=== PATIENT | female | born 1950 | race Caucasian/White ===

== ENCOUNTER → 2019-12-23 | Outpatient (CLI) | payer MEDICARE, OTHER ==
[~2019-12-23] VITALS: Ht 165 cm; Wt 112.0 kg
[~2019-12-23] MED LIST: ASP325TEC PO; ASP81TEC PO; BRILINTA PO; CATHETER FLUSH 10 ML SYR IV PRN; CLOP75TA; CLOP75TA PO; CYCL10TA9 PO; DOCU100T7 PO; ESOM20SU PO; HYDR12.56 PO; LISI20TA PO; METO50TA7 PO; MULT-608; NAPR-243 PO; OMEP20CA12 PO; OMG1KC PO; OXYC-12 PO; REGADENOSON 0.4 MG/5 ML SYR (LEXISCAN) IV ONE; SIMV40TA2 PO; SMV20T PO; TICA90TA PO; TOLTA4 PO; TRM50T PO
--- NOTE | 2019-12-23 12:37 | STRESS TEST ---
DATE OF SERVICE: 12/23/2019 RESTING AND POST REGADENOSON TECHNETIUM-99M TETROFOSMIN SPECT CT IMAGING ORDERING PHYSICIAN: Dr. Blanco. PRIMARY PHYSICIAN: Dr. Killian. CLINICAL DIAGNOSES: Coronary artery disease. Baseline images were carried out after injection of 10.98 mCi of technetium-99m Tetrofosmin. This was followed by 0.4 mg regadenoson and 29.7 mCi of technetium-99m Tetrofosmin for stress imaging. The electrocardiogram showed sinus rhythm at baseline and did not change significantly with the regadenoson infusion. The patient noted some shortness of breath following regadenoson infusion, which resolved in a few minutes. Review of images at rest and following stress does not indicate significant perfusion defects consistent with myocardial ischemia or infarction. Gated images show normal global left ventricular systolic function with normal regional wall motion. Left ventricular ejection fraction calculated to be 51%. Left ventricular end diastolic volume is 46 mL. TID is absent (1.14). CONCLUSIONS: 1. No evidence of any significant myocardial ischemia or infarction is seen. 2. Normal regional wall motion. 3. Normal global left ventricular systolic function with a calculated ejection fraction of 51%. Job ID: [id number] DocumentID: [id number] Dictated Date: 12/23/2019 12:20:11 Glaze Carrier Date: 12/23/2019 12:36:16 Dictated By: NETO BLANCO MD, MA, FACP, FACC,
== END ==
LOC: CARD 07:51
PROVIDERS: ATTEND Internal Medicine Cardiovascular Disease
DX: I25.10 Atherosclerotic heart disease of native coronary artery without angina pectoris (principal); I77.89 Other specified disorders of arteries and arterioles; E78.5 Hyperlipidemia, unspecified; G47.30 Sleep apnea, unspecified
CPT/HCPCS: 78452; 93017

== ENCOUNTER → 2019-12-29 | Outpatient (CLI) | payer MEDICARE, OTHER ==
[~2019-12-29] MED LIST changes: -CATHETER FLUSH 10 ML SYR IV PRN; -REGADENOSON 0.4 MG/5 ML SYR (LEXISCAN) IV ONE
== END ==
LOC: CARD 08:46
PROVIDERS: ATTEND Internal Medicine Cardiovascular Disease
DX: I25.10 Atherosclerotic heart disease of native coronary artery without angina pectoris (principal); I77.89 Other specified disorders of arteries and arterioles; E78.5 Hyperlipidemia, unspecified; G47.30 Sleep apnea, unspecified
CPT/HCPCS: 93306

== ENCOUNTER 2021-07-17 18:04 | Emergency (ER) | payer MEDICARE ==
[~2021-07-17] VITALS: Ht 165 cm; Wt 113.0 kg
[2021-07-17 18:15] VITALS: BP 121/75
[2021-07-17] MEDS ORDERED: TETANUS,DIPTH,PERTUSS P/F (BOOSTRIX) 0.5 ML VIAL IM ONE (18:30)
[2021-07-17] MEDS ORDERED: LIDOCAINE 1% INJ 20 ML 20 ML VIAL INJ ONE (18:45)
[2021-07-17] MEDS ORDERED: ACETAMINOPHEN 500 MG TAB (TYLENOL) PO STA (18:51)
[2021-07-17] MEDS ORDERED: DOXYCYCLINE 100 MG (VIBRAMYCIN) TABLET PO STA (19:03)
--- NOTE | 2021-07-17 19:07 | ED Upper Extremity ---
General Chief Complaint: Upper Extremity Stated Complaint: PIEDAD IN FINGER,LEFT HAND Nursing Triage Note: Pt here after having her finger cut with furniture piedad; states the staple was ripped through her left index finger. Unknown last tetanus shot. Source: patient Exam Limitations: no limitations History of Present Illness Date Seen by Provider: Jul 17, 2021 Time Seen by Provider: 18:15 Initial Comments This 71-year-old woman presents to the emergency room with laceration to the left index finger. She snagged her finger on a large furniture staple. She has a 2.5 cm flap laceration as well as a puncture where the staple came through the skin from beneath the flap laceration. She is not up-to-date on her tetanus immunization. Bleeding is controlled at this time. Allergies and Home Medications Allergies Coded Allergies: codeine (Verified Allergy, Severe, RASH/HIVES; CAN TAKE HYDROCODONE, 01/22/13) ORIGINAL RXN = BREATHING PROBLEMS, WHEN PT QUESTIONED TODAY 01/22/13 GAVE RASH & HIVES REACTION. Sulfa (Sulfonamide Antibiotics) (Verified Allergy, Unknown, 10/26/15) sulfamethoxazole (Unverified Allergy, Unknown, HIVES, 10/26/15) trimethoprim (Unverified Allergy, Unknown, HIVES, 10/26/15) Home Medications Aspirin 81 Mg Tabec, 81 MG PO DAILY, (Reported) Cyclobenzaprine Hcl 10 Mg Tablet, 1 EACH PO Q8HR Prescribed by: TAYLOR TYLER on 01/14/14 0808 Docusate Sodium 100 Mg Tablet, 100 MG PO DAILY, (Reported) Doxycycline Hyclate 100 Mg Tablet, 100 MG PO BID Prescribed by: TODD SANDY on 07/17/21 191 Esomeprazole Mag Trihydrate 20 Mg Suspdr.pkt, 20 MG PO DAILY, (Reported) Lisinopril 20 Mg Tablet, 20 MG PO DAILY, (Reported) Metoprolol Succinate 50 Mg Tab, 50 MG PO DAILY, (Reported) Naproxen 500 Mg Tablet, 1 EACH PO TID PRN for PAIN FOR PAIN Prescribed by: TAYLOR TYLER on 01/14/14 0808 [place] 3 Polyunsat Fatty Acids 1,000 Mg Cap, 1,000 MG PO DAILY, (Reported) Simvastatin 20 Mg Tab, 20 MG PO HS, (Reported) Tolterodine Tartrate 4 Mg Cap.sr.24h, 1 EACH PO DAILY, (Reported) Tramadol Hcl 50 Mg Tab, 50 MG PO Q4-6HR PRN for PAIN FOR PAIN Prescribed by: TAYLOR TYLER on 01/14/14 0840 Patient Home Medication List Home Medication List Reviewed: Yes Review of Systems Constitutional: no symptoms reported EENTM: no symptoms reported Respiratory: no symptoms reported Cardiovascular: no symptoms reported : No Musculoskeletal: no symptoms reported Skin: see HPI Psychiatric/Neurological: No Symptoms Reported Past Rluzlzl-Lyqznm-Ijsfpi Hx Patient Social History Tobacco Use?: Yes Past Medical History Surgeries: Yes (Polypectomy) Coronary Stent, Gallbladder, Hysterectomy, Orthopedic Respiratory: Yes Sleep Apnea Cardiac: Yes Coronary Artery Disease, Deep Vein Thrombosis, High Cholesterol, Hypertension, Peripheral Vascular Neurological: Yes Neuropathy : No Reproductive Disorders: No Genitourinary: No Gastrointestinal: Yes Gastroesophageal Reflux, Polyps Musculoskeletal: Yes (Polio as a child) Arthritis HEENT: Yes Hearing Impairment: Hard of Hearing Cancer: No Physical Exam Vital Signs Vital Signs - First Documented 07/17/21 18:15 Temp 37.5 Pulse 70 Resp 18 B/P (MAP) 121/75 (90) Pulse Ox 97 Capillary Refill : Less Than 3 Seconds Height, Weight, BMI Height: 0'65.00" Weight: 244lbs. oz. 110.017083xx; 41.00 BMI Method:Stated General Appearance: WD/WN, no apparent distress HEENT: normal ENT inspection Respiratory: no respiratory distress, no accessory muscle use Wrist: Yes normal inspection, Yes non-tender, Yes no evidence of injury, Yes normal ROM Hand: normal ROM, Left (L-shaped flap laceration on the radial palmar aspect of the left indext finger about 2.5 cm in length. Distal sensation and cap refill intact. Puncutre wound more distal. ) Neurologic/Tendon: normal sensation, normal motor functions, normal tendon functions Neurologic/Psychiatric: gas appliance mechanic II-XII nml as tested, no motor/sensory deficits, alert, normal mood/affect, oriented x 3 Skin: normal color, warm/dry, other (See above) Procedures/Interventions Wound Location: Upper Extremities Other Wound Location Left index finger Wound Length (cm): 2.5 Wound's Depth, Shape: flap, sub Q Wound Explored: clean Irrigated w/ Saline (ccs): 100 Betadine Prep?: Yes Anesthesia: 1% Lidocaine Volume Anesthetic (ccs): 6 Suture: Prolene Suture Size: 5-0 Number of Sutures: 4 Layer Closure?: 1 Sterile Dressing Applied?: Yes Progress Wound was sprayed with lidocaine. Alcohol swabs were used to clean skin. Digital block and local anesthesia were used. Wound was irrigated with saline and chlorhexidine mixture. It was then rinsed with saline. Betadine was applied. Wound was approximated with 4 interrupted sutures of 5-0 Prolene. Patient tolerated the procedure well. Wound was cleaned and dressed with a large Band-Aid. Progress/Results/Core Measures Results/Orders My Orders Orders - TODD CABEZAS MD Dipht,Farhana(Acell),Tet Adult (Boostrix (07/17/21 18:30) Lidocaine 1% Inj 20 Ml (Xylocaine 1% Inj (07/17/21 18:45) Doxycycline Hyclate Tablet (Vibramycin T (07/17/21 19:03) Medications Given in ED Vital Signs/I&O Blood Pressure Mean: 90 Progress Progress Note : Progress Note Wound was cleaned and approximated. Tetanus booster was given. Tylenol was given for pain. Because there was a deep puncture as part of this wound, prophylaxis with doxycycline was given. Departure Impression Primary Impression: Laceration of finger Qualified Codes: S61.211A - Laceration without foreign body of left index finger without damage to nail, initial encounter Additional Impression: Puncture wound Disposition: 01 HOME, SELF-CARE Condition: Improved Departure-Patient Inst. Decision time for Depature: 19:08 Referrals: POLLO SHARPE MD (PCP/Family) Primary Care Physician Patient Instructions: Laceration Repair With Stitches (DC) Add. Discharge Instructions: Keep the wound clean and dry except for normal hand washing. Do not submerge until after stitches are removed. Monitor for signs of infection such as increasing redness, increasing swelling, puslike drainage, or fever. Return to care promptly if you notice the symptoms. Complete your antibiotics as prescribed to prevent infection with this puncture wound. Use Tylenol (acetaminophen) 1000 mg every 6 hours as needed for pain. Return in 7 or 8 days to have the sutures removed. Cover when active, sleeping, or in dirty environments. You may leave open to air while awake and in clean environments. All discharge instructions reviewed with patient and/or family. Voiced understanding. Scripts Doxycycline Hyclate (Doxycycline Hyclate) 100 Mg Tablet 100 MG PO BID, #10 TAB 0 Refills Prov: TODD CABEZAS MD 07/17/21 TODD CABEZAS MD Jul 17, 2021 19:07
[2021-07-17] MEDS ORDERED: DOXY100T2 PO (19:10)
== END 2021-07-17 19:43 | disposition home or self-care (01) ==
LOC: EDUNIT# 18:04 → ER 18:09
DX: S61.211A Laceration without foreign body of left index finger without damage to nail, initial encounter (principal); G47.30 Sleep apnea, unspecified; I10 Essential (primary) hypertension; K21.9 Gastro-esophageal reflux disease without esophagitis; I25.10 Atherosclerotic heart disease of native coronary artery without angina pectoris; E78.00 Pure hypercholesterolemia, unspecified; Z23 Encounter for immunization; Z79.82 Long term (current) use of aspirin; Z79.899 Other long term (current) drug therapy; W26.8XXA Contact with other sharp object(s), not elsewhere classified, initial encounter
CPT/HCPCS: 12011; 90715

== ENCOUNTER → 2022-04-06 | Outpatient (CLI) | payer MEDICARE ==
[~2022-04-06] MED LIST changes: +DOXY100T2 PO
--- NOTE | 2022-04-10 14:02 | Diagnostic Imaging Report ---
INDICATION: Routine screening. Comparison is made with prior mammogram from 04/11/2021 and 03/30/2020. 2-D and 3-D bilateral screening mammography was performed with CAD. Scattered fibroglandular densities are identified bilaterally. A nodular density in the upper outer right breast appears stable. There are scattered benign calcifications bilaterally. No dominant mass or malignant-appearing microcalcifications are seen. Axillae are unremarkable. IMPRESSION: No mammographic features suspicious for malignancy are identified. ACR BI-RADS Category 2: Benign findings. Result letter will be mailed to the patient. Note: At least 10% of breast cancer is not imaged by mammography. BI-RADS Category 2 Dictated by: Dictated on workstation # [id number]
== END ==
LOC: RAD 08:30
PROVIDERS: ATTEND Nurse Practitioner Family
DX: Z12.31 Encounter for screening mammogram for malignant neoplasm of breast (principal)
CPT/HCPCS: 77063; 77067

== ENCOUNTER → 2022-04-06 | Outpatient (CLI) | payer MEDICARE ==
--- NOTE | 2022-04-06 09:19 | Diagnostic Imaging Report ---
PROCEDURE: US Venous Lower Ext Mani. TECHNIQUE: Multiple real-time grayscale images were obtained over the lower extremities in various projections, bilaterally. Additional duplex Doppler and color Doppler images were also obtained. INDICATION: Bilateral leg swelling The veins of lower extremities have good color filling and compressibility. There is phasic flow and a normal response to augmentation. IMPRESSION: Negative venous Doppler lower extremities Dictated by: Dictated on workstation # [id number]
== END ==
LOC: CARD 08:27
PROVIDERS: ATTEND Internal Medicine Cardiovascular Disease
DX: M79.89 Other specified soft tissue disorders (principal); I25.10 Atherosclerotic heart disease of native coronary artery without angina pectoris
CPT/HCPCS: 93306; 93970

== ENCOUNTER → 2022-04-21 | Outpatient (CLI) | payer MEDICARE ==
[~2022-04-21] VITALS: Ht 165 cm; Wt 118.0 kg
[~2022-04-21] MED LIST changes: +REGADENOSON 0.4 MG/5 ML SYR (LEXISCAN) IV ONE
[2022-04-21] MEDS: CATHETER FLUSH 10 ML SYR IVP PRN ×2 (07:49→09:29)
[2022-04-21 09:25] VITALS: BP 184/81
--- NOTE | 2022-04-24 12:24 | STRESS TEST ---
DATE OF SERVICE: 04/21/2022 RESTING AND POST REGADENOSON TECHNETIUM-99M TETROFOSMIN SPECT CT IMAGING ORDERING PHYSICIAN: Dr. Blanco. PRIMARY PHYSICIAN: Dr. Killian. CLINICAL DIAGNOSES: Coronary artery disease. Baseline images were carried out after injection of 10.88 mCi of technetium-99m Tetrofosmin. This was followed by 0.4 mg of regadenoson and 27.7 mCi of technetium-99m Tetrofosmin for stress imaging. The electrocardiogram showed sinus rhythm at baseline. It did not change significantly with the regadenoson infusion. Review of images at rest and following stress indicate a small to moderate amount of transient perfusion defect in the anterior wall and in the inferior wall. Gated images show normal global left ventricular systolic function with normal regional wall motion. Left ventricular ejection fraction is calculated to be 66%. CONCLUSIONS: 1. This study is indicative of multivessel ischemia (moderate). 2. Normal global left ventricular systolic function with an ejection fraction of 66%. 3. Normal regional wall motion. Job ID: [id number] DocumentID: [id number] Dictated Date: 04/24/2022 09:32:49 Suction Worker Date: 04/24/2022 12:24:01 Dictated By: NETO BLANCO MD, MA, FACP, FACC,
== END ==
LOC: CARD 07:27
PROVIDERS: ATTEND Internal Medicine Cardiovascular Disease
DX: I25.10 Atherosclerotic heart disease of native coronary artery without angina pectoris (principal)
CPT/HCPCS: 78452; 93017; A9502

== ENCOUNTER 2022-05-09 06:53 | Day surgery (SDC) | payer MEDICARE ==
[~2022-05-09] VITALS: Ht 165.1 cm; Wt 119.1 kg
[~2022-05-09 06:53] MED LIST changes: -REGADENOSON 0.4 MG/5 ML SYR (LEXISCAN) IV ONE
[2022-05-09] MEDS ORDERED: NS IV 1000 ML 1,000 ML IV SCH (07:00)
[2022-05-09] MEDS ORDERED: HEParin (CATH LAB) 2,000 ML IV ONE (07:03)
[2022-05-09] MEDS ORDERED: NS IV 1000 ML 1,000 ML ONE (07:03)
[2022-05-09] MEDS ORDERED: LIDOCAINE 1% INJ 20 ML VIAL ONE (07:03)
[2022-05-09 07:12] VITALS: BP 155/73
[2022-05-09] MEDS ORDERED: PANT40TA2 PO (07:25)
[2022-05-09 07:27] LABS: HEMATOCRIT 37 % (35-52); HEMOGLOBIN 11.9 g/dL (11.5-16.0); MEAN CORPUSCULAR HEMOGLOBIN 28 pg (25-34); MEAN CORPUSCULAR HGB CONC 32 g/dL (32-36); MEAN CORPUSCULAR VOLUME 87 fL (80-99); MEAN PLATELET VOLUME 10.4 fL (9.0-12.2); PLATELET COUNT 258 10^3/uL (130-400); WHITE BLOOD COUNT 6.6 10^3/uL (4.3-11.0)
[2022-05-09 07:38] LABS: POTASSIUM 4.3 MMOL/L (3.6-5.0); PROTHROMBIN TIME PATIENT 13.7 SEC (12.2-14.7)
[2022-05-09 07:39] LABS: ALBUMIN 4.2 GM/DL (3.2-4.5); CALCIUM 9.3 MG/DL (8.5-10.1)
[2022-05-09 07:41] LABS: TOTAL PROTEIN 7.4 GM/DL (6.4-8.2)
[2022-05-09 07:43] LABS: BILIRUBIN,TOTAL 0.3 MG/DL (0.1-1.0)
[2022-05-09 07:45] LABS: CREATININE SERUM 0.94 MG/DL (0.60-1.30)
[2022-05-09] MEDS ORDERED: MIDAZOLAM 5 MG/5 ML (VERSED) VIAL ONE (07:52)
[2022-05-09] MEDS ORDERED: fentaNYL INJ 100 MCG/2 ML AMP ONE ×2 (07:52→13:10)
[2022-05-09] MEDS ORDERED: diphenhydrAMINE 50 MG/ML INJ (BENADRYL) ONE (08:40)
[2022-05-09] MEDS ORDERED: EPTIFIBATIDE BOLUS 10 ML IV ONE ×2 (08:59→09:07)
[2022-05-09] MEDS ORDERED: HEParin 1000 UNIT/ML (10ML VIAL) FOR BOLUS ONE (08:59)
[2022-05-09] MEDS ORDERED: EPTIFIBATIDE DRIP 100 ML IV ONE (09:10)
[2022-05-09] MEDS ORDERED: NITRO DRIP 25000 MCG/D5W 250 ML IV ONE (09:24)
[2022-05-09] MEDS ORDERED: ONDANSETRON 4 MG/2 ML (SDV) Z0FRAN ONE (09:25)
[2022-05-09] MEDS ORDERED: ATROPINE INJECTION 1 MG/10 ML SYR (ABBOTT) ONE (09:36)
[2022-05-09] MEDS ORDERED: MIDAZOLAM 2 MG/2 ML (VERSED) VIAL ONE (09:42)
[2022-05-09] MEDS ORDERED: CLOPIDOGREL 300 MG (PLAVIX) TABLET PO ONE (09:56)
[2022-05-09] MEDS ORDERED: ASPIRIN 81 MG CHEW (CHILDREN'S ASA) ONE (09:56)
--- NOTE | 2022-05-09 10:14 | Cardiac Procedure Note-CS/ASA ---
Pre-Procedure Note Pre-Op Procedure Note H&P Reviewed The H&P was reviewed, patient examined and no changes noted. Date H&P Reviewed: May 09, 2022 Time H&P Reviewed: 08:45 Conscious Sedation Pre-Proced Time 08:45 ASA Score 3 For ASA 3 and 4: Consider anesthesia and medical clearance. Also, for patients with a history of failed moderate sedation consider anesthesia. Airway Lungs Heart ASA score ASA 1: a normal healthy patient ASA 2: a patient with a mild systemic disease (mid diabetes, controlled hypertension, obesity ASA 3: a patient with a severe systemic disease that limits activity (angina, COPD, prior Myocardial infarction) ASA 4: a patient with an incapacitating disease that is a constant threat to life (CHF, renal failure) ASA 5: a moribund patient not expected to survive 24 hrs. (ruptured aneurysm) ASA 6: a declared brain- patient whose organs are being harvested. For emergent operations, add the letter E after the classification Mallampati Classification Grade 3 Sedation Plan Analgesia, Amnesia, Plan communicated to team members, Discussed options with patient/fam, Discussed risks with patient/fam The patient is an appropriate candidate to undergo the planned procedure, sedation, and anesthesia. The patient immediately re-assessed prior to indication. NETO OJEDA MD FACP FAC CCDS May 09, 2022 10:14
[2022-05-09] MEDS ORDERED: PATIENT MAY USE OWN MEDS, ALL PO SCH (10:15)
[2022-05-09] MEDS: NS IV 1000 ML 1,000 ML IV SCH ×2 (10:15→21:28)
[2022-05-09] MEDS ORDERED: oxyCODONE/APAP 5/325MG (PERCOCET 5) TABLET PO PRN (10:30)
[2022-05-09] MEDS ORDERED: ACETAMINOPHEN 325 MG TABLET PO PRN (10:30)
[2022-05-09] MEDS ORDERED: FAMOTIDINE 20 MG (PEPCID) TABLET PO PRN (10:30)
[2022-05-09] MEDS ORDERED: lisINopril 20 MG (PRINIVIL) TABLET PO ONE (10:45)
[2022-05-09] MEDS ORDERED: CALCIUM CARBONATE 500 MG (TUMS) TAB.CHEW PO ONE ×2 (10:45→14:30)
[2022-05-09] MEDS ORDERED: ASPIRIN 81 MG CHEW (CHILDREN'S ASA) PO ONE (10:45)
[2022-05-09] MEDS ORDERED: CLOPIDOGREL 75 MG (PLAVIX) TABLET PO ONE ×2 (10:45→14:30)
[2022-05-09] MEDS ORDERED: FAMOTIDINE 20 MG (PEPCID) TABLET PO ONE (10:45)
[2022-05-09] MEDS ORDERED: ATROPINE INJ 0.4 MG/ML SDV ONE (13:10)
--- NOTE | 2022-05-09 13:41 | CARDIAC CATHETERIZATION ---
DATE OF SERVICE: 05/09/2022 CARDIAC CATHETERIZATION AND CORONARY INTERVENTION REPORT INDICATION FOR PROCEDURE: The patient a 72-year-old lady with known coronary artery disease, who has been experiencing shortness of breath and intermittent chest discomfort. Myocardial perfusion imaging study was indicative of multivessel ischemia. Cardiac catheterization was carried out after having obtained an informed consent. DESCRIPTION OF PROCEDURE: She was brought to the cardiac catheterization laboratory in a fasting state. Right groin was prepared and draped in the usual sterile fashion. Lidocaine 1% was used for local anesthesia. Modified Seldinger technique was used to advance a 5-Uzbek sheath in the right femoral artery, 5-Uzbek JL4 catheter was used for left angiography, 5-Uzbek JR4 catheter was used for right coronary angiography, 5-Uzbek pigtail catheter was used for left heart catheterization. Left ventricular angiography was not performed. This was to conserve contrast because the patient needed multivessel coronary intervention. Following completion of the diagnostic procedure, we carried out percutaneous interventions to the left anterior descending and to the right coronary arteries. PERCUTANEOUS INTERVENTION OF THE LEFT ANTERIOR DESCENDING: The left anterior descending was exhibiting 80% to 90% proximal and mid vessel stenosis that involved the origin of the first diagonal branch. We exchanged the sheath over a wire for a 6-Uzbek sheath. We used a 6-Uzbek EBU 4 catheter to engage the left coronary artery. We advanced a BMW wire across the lesion in the left anterior descending and the tip was placed in the distal vessel. We stented the 80% to 90% stenosis in the proximal to mid left anterior descending with Skypoint 2.75 x 15 mm stent. It was deployed at 12 atmospheres. The proximal two thirds of the stent were then postdilated with the same balloon to 20 atmospheres. Full stent expansion was achieved. The stenosis was reduced from 80% to 90% to a residual of 0%. The distal left anterior descending has multiple 50% to 60% stenoses, including significant disease in the ostium of the second diagonal branch. These lesions were not intervened on. The first diagonal branch is jailed by the stent, but there is no significant compromise to the vessel. Flow throughout the vessel is normal (FABIEN III). PERCUTANEOUS INTERVENTION TO THE RIGHT CORONARY ARTERY: The right coronary artery was exhibiting in-stent restenosis of approximately 90% at the overlap of two previously placed stents. We used a 6-Uzbek JR4 guide catheter to engage the right coronary artery. We advanced a BMW wire across the lesions and the tip was placed in the distal vessel. We carried out balloon angioplasty at the overlap of the two stents with a 3.5 x 20 mm noncompliant balloon. This reduced the stenosis to less than 10% residual. Flow throughout the vessel is normal. The patient tolerated the procedure well. HEMODYNAMICS: Left ventricular end-diastolic pressure following coronary angiography was 20 mmHg. There was no significant pressure gradient on pullback across the aortic valve. Ascending aortic pressure was 147/57 with a mean of 94 mmHg. CORONARY ANGIOGRAPHY: Left main coronary artery is free of significant disease. Left anterior descending artery had 80% to 90% proximal and mid vessel stenosis that involves the origin of the first diagonal branch. This lesion was stented with Skypoint 2.75 x 15 mm stent deployed at 12 atmospheres and the proximal two thirds dilated at 20 atmospheres. This reduced the stenosis to 0% residual. The distal left anterior descending artery has moderate diffuse disease and multiple stenoses of up to approximately 60%. The second diagonal branch has severe ostial stenosis, but is of a small caliber. The first diagonal branch is jailed by the stent, but is not compromised. The left circumflex artery is diminutive and does not exhibit significant disease. The right coronary artery has two overlapping stents, Taxus 3.0 x 32 mm distal and Ion 2.75 x 12 mm. At the site of overlap, there was 90% stenosis. Successful balloon angioplasty was carried out to this with a 3.5 x 20 mm balloon, which reduced the stenosis to less than 10% residual. The distal and proximal right coronary artery have moderate diffuse disease. This was not intervened on. CONCLUSIONS: A 80% to 90% proximal and mid vessel left anterior descending artery stenosis, stented with Skypoint 2.75 x 15 mm stent. The left anterior descending artery distal to the stented segment has diffuse moderate disease. A small caliber second diagonal branch has moderate to severe ostial disease. The first diagonal branch is jailed by the stent, but is not compromised. The left circumflex artery is diminutive and does not exhibit significant disease. The right coronary artery is dominant and had previously placed overlapping Taxus 3.0 x 32 mm and Ion 2.75 x 12 mm stent and there was 90% stenosis at the overlap to which successful balloon angioplasty was carried out with a 3.5 mm noncompliant balloon that reduced the stenosis to less than 10%. The distal right coronary artery has moderate diffuse disease. DISCUSSION AND RECOMMENDATIONS: Dual antiplatelet therapy is being continued. She will be observed overnight in the hospital. Risk factor modification has been reviewed. Statin therapy is advised, but she is intolerant. Beta haleigh therapy will be provided if tolerated. Job ID: [id number] DocumentID: [id number] Dictated Date: 05/09/2022 10:11:47 Accounts Payable Bookkeeper Date: 05/09/2022 13:40:31 Dictated By: NETO OJEDA MD, MA, FACP, FACC, MTDD
[2022-05-09] MEDS: lisINopril 20 MG (PRINIVIL) TABLET PO ONE ×2 (14:30→14:38)
[2022-05-09] MEDS: ASPIRIN 81 MG CHEW (CHILDREN'S ASA) PO ONE ×2 (14:30→14:37)
--- NOTE | 2022-05-09 18:37 | Tele-ICU Progress Note ---
Progress Note Video assessment done , Hemodynamically stable Available charting reviewed NO TELE-ICU CONSULT REQUESTED CONTINUE TO MONITOR PER USUAL TELE-ICU PROTOCOL No need for Tele-ICU interventions Plans as delineated by bedside physicians / consultants Focused Exam Height, Weight, BMI Height: 0'65.00" Weight: 244lbs. oz. 110.463774hx; 42.62 BMI Method:Stated STEVENSON SHEPHERD MD May 09, 2022 18:37
[2022-05-10 04:44] LABS: BASOPHILS % (AUTO) 1 % (0-10); EOSINOPHILS # (AUTO) 0.1 10^3/uL (0.0-0.3); EOSINOPHILS % (AUTO) 2 % (0-10); HEMATOCRIT 34 % (35-52); HEMOGLOBIN 10.6 g/dL (11.5-16.0); LYMPHOCYTES # (AUTO) 1.6 10^3/uL (1.0-4.0); LYMPHOCYTES % (AUTO) 27 % (12-44); MEAN CORPUSCULAR HEMOGLOBIN 28 pg (25-34); MEAN CORPUSCULAR HGB CONC 31 g/dL (32-36); MEAN CORPUSCULAR VOLUME 89 fL (80-99); MEAN PLATELET VOLUME 11.1 fL (9.0-12.2); MONOCYTES # (AUTO) 0.4 10^3/uL (0.0-1.0); MONOCYTES % (AUTO) 7 % (0-12); NEUTROPHILS # (AUTO) 3.8 10^3/uL (1.8-7.8); NEUTROPHILS % (AUTO) 64 % (42-75); PLATELET COUNT 208 10^3/uL (130-400); WHITE BLOOD COUNT 6.1 10^3/uL (4.3-11.0)
[2022-05-10 04:57] LABS: POTASSIUM 4.2 MMOL/L (3.6-5.0)
[2022-05-10 05:03] LABS: CREATININE SERUM 0.86 MG/DL (0.60-1.30); PHOSPHORUS 3.1 MG/DL (2.3-4.7)
[2022-05-10 05:05] LABS: MAGNESIUM 2.1 MG/DL (1.6-2.4)
--- NOTE | 2022-05-10 07:59 | Progress Note - Cardiology ---
Cardiology SOAP Progress Note Subjective: C/O heartburn this morning (states chronic issue) No c/o CP, SOB or palpitations No c/o right groin discomfort Objective: I&O/Vital Signs 05/09/22 05/09/22 05/09/22 05/09/22 21:00 22:00 23:00 23:50 Temp 36.3 Pulse 60 61 59 Resp 23 17 17 B/P (MAP) 133/64 123/75 121/67 Pulse Ox 94 93 94 O2 Delivery Room Air Room Air Room Air Room Air 05/09/22 05/10/22 05/10/22 05/10/22 23:52 00:00 01:00 01:00 Pulse 61 60 60 Resp 18 17 B/P (MAP) 116/49 132/69 Pulse Ox 95 92 93 O2 Delivery Room Air Room Air Room Air 05/10/22 05/10/22 05/10/22 05/10/22 02:00 03:00 03:00 03:48 Temp 36.1 Pulse 60 61 74 Resp 19 17 13 B/P (MAP) 120/66 111/64 Pulse Ox 94 90 100 O2 Delivery Room Air Room Air Room Air Nasal Cannula O2 Flow Rate 2.00 05/10/22 05/10/22 05/10/22 05/10/22 04:00 04:11 05:00 05:00 Pulse 60 58 Resp 16 18 B/P (MAP) 135/62 131/73 Pulse Ox 100 94 98 96 O2 Delivery Nasal Cannula Nasal Cannula Room Air Room Air O2 Flow Rate 2.00 2.00 05/10/22 05/10/22 05/10/22 06:00 07:43 08:00 Temp 36.8 Pulse 58 Resp 18 B/P (MAP) 135/73 Pulse Ox 98 O2 Delivery Room Air Room Air 05/10/22 00:00 Intake Total 1250 ml Output Total 1025 ml Balance 225 ml Weight (Pounds): 244 Weight (Calculated Kilograms): 110.048068 Side: right Groin site without hematoma: Yes Condition: DP/PT pulses palpable, extremity w/d/p Bruising: mild bruising Constitutional: AAO x 3, well-developed, well-nourished Respiratory: No accessory muscle use, No respiratory distress; chest expansion is symmetric, chest is bilaterally symmetric, lungs clear to auscultation Cardiovascular: regular rate-rhythm; No JVD; S1 and S2 Gastrointestional: No tender; soft, round; No guarding; audible bowel sounds Extremities: no lower extremity edema bilateral Neurologic/Psychiatric: grossly intact (moves all extremities) Skin: No rash on exposed areas, No ulcerations on exposed areas Results/Procedures: Labs Laboratory Tests 05/10/22 04:27: White Blood Count 6.1, Red Blood Count 3.80, Hemoglobin 10.6L, Hematocrit 34L, Mean Corpuscular Volume 89, Mean Corpuscular Hemoglobin 28, Mean Corpuscular Hemoglobin Concent 31L, Red Cell Distribution Width 15.0H, Platelet Count 208, Mean Platelet Volume 11.1, Immature Granulocyte % (Auto) 0, Neutrophils (%) (Auto) 64, Lymphocytes (%) (Auto) 27, Monocytes (%) (Auto) 7, Eosinophils (%) (Auto) 2, Basophils (%) (Auto) 1, Neutrophils # (Auto) 3.8, Lymphocytes # (Auto) 1.6, Monocytes # (Auto) 0.4, Eosinophils # (Auto) 0.1, Basophils # (Auto) 0.0, Immature Granulocyte # (Auto) 0.0, Sodium Level 140, Potassium Level 4.2, Chloride Level 106, Carbon Dioxide Level 22, Anion Gap 12, Blood Urea Nitrogen 16, Creatinine 0.86, Estimat Glomerular Filtration Rate 71, BUN/Creatinine Ratio 19, Glucose Level 90, Calcium Level 9.0, Phosphorus Level 3.1, Magnesium Level 2 .1 Laboratory Tests 05/09/22 07:14 05/10/22 04:27 A/P: Assessment: CAD: - Coronary artery disease with history of stenting with Taxus 3 x 32-mm stent in the right coronary artery in July 2008. - Cardiac catheterization of 12/26/2011 showed right coronary artery stenosis prior to the previously placed stent. This was stented with Ion 2.75 x 12-mm s tent, which was taken to a final lumen size of 3.1 mm. Elsewhere, the patient had relatively moderate disease consisting of 50% mid-vessel stenosis in the left anterior descending and 50% mid-vessel stenosis in the right coronary. - MPI of 04-21-22 : This study is indicative of multivessel ischemia (moderate). Normal global left ventricular systolic function with an ejection fraction of 66%. Normal regional wall motion. - Cardiac cath of 05-09-22: A 80% to 90% proximal and mid vessel left anterior descending artery stenosis stented with Skypoint 2.75 x 15 mm stent. The left anterior descending artery distal to the standard segment has diffuse moderate disease. A small caliber second diagonal branch has moderate to severe ostial disease. The first diagonal branch is jailed by the stent, but is not compromised. The left circumflex artery is diminutive and does not exhibit significant disease. The right coronary artery is dominant and had previously placed overlapping Taxus 3.0 x 32 mm and Ion 2.75 x 12 mm stent and there was 90% stenosis at the overlap to which successful balloon angioplasty was carried out with a 3.5 mm noncompliant balloon that reduced the stenosis to less than 10%. The distal right coronary artery has moderate diffuse disease. - Echocardiogram from 04-06-22: [id number] Mild to mod MR. Grade 1 diastolic dysfunction. PASP 30-35 mmHg Hyperlipidemia - but is intolerant to statins GI - History of cholecystectomy in 2008. - Gastroesophageal reflux. 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 Ortho - Degenerative joint disease. R shoulder pain R rotator cuff injury in early 2019 Chronic mild anemia - being followed by Dr. Killian. Chronic, mild, intermittent, bilateral leg swelling - likely related to venous insuff - no evidence of DVT on venous u/s of 04/06/22 Sleep apnea syndrome - being treated with C-PAP therapy, currently noncompliant Obesity - Elevated body mass index of approximately 41. H/o tobaccoism - Quit smoking in 2005. Carotid dz - Approx 50% R ICA and less than 40% L ICA stenoses on carotid ultrasonography of 03/31/22 Plan: Ok to discharge home today Continue DAPT Continue PPI and add Pepcid to regimen Advise out pt f/u in 2 weeks MIKE LARSON May 10, 2022 07:59
[2022-05-10] MEDS ORDERED: ASPI81TA64 PO (08:01)
[2022-05-10] MEDS ORDERED: MTP25TSR PO (08:01)
[2022-05-10] MEDS ORDERED: CLOP75TA28 PO (08:01)
--- NOTE | 2022-05-10 08:01 | Discharge Inst-Cardiology ---
Discharge Inst-Cardiac Discharge Medications New Medications: Aspirin (Children's Aspirin) 81 Mg Tab.chew 81 MG PO DAILY, #90 TAB 3 Refills Clopidogrel Bisulfate (Clopidogrel) 75 Mg Tablet 75 MG PO DAILY, #90 TAB 3 Refills Metoprolol Succinate (Metoprolol Succinate) 25 Mg Tab.er.24h 25 MG PO DAILY, #90 TAB 3 Refills Continued Medications: Lisinopril (Zestril) 20 Mg Tablet 20 MG PO DAILY Pantoprazole Sodium (Protonix) 40 Mg Tablet.dr 40 MG PO DAILY, TAB Discontinued Medications: Aspirin (Aspirin Ec 81 Mg) 81 Mg Tabec 81 MG PO DAILY Metoprolol Succinate (Toprol Xl) 50 Mg Tab 50 MG PO DAILY New, Converted or Re-Newed RX: Transmitted to Pharmacy Patient Instructions Patient Instructions: Please schedule follow up appointment to see Dr. Blanco in 2 weeks MIKE LARSON May 10, 2022 08:01
[2022-05-10] MEDS ORDERED: FAMO20TA5 PO (08:44)
[2022-05-10] MEDS ORDERED: PATIENT MAY USE OWN MED,SINGLE MED PO SCH (09:00)
[2022-05-10] MEDS ORDERED: lisINopril 20 MG (PRINIVIL) TABLET PO SCH (09:00)
[2022-05-10] MEDS ORDERED: ASPIRIN 81 MG CHEW (CHILDREN'S ASA) PO SCH (09:00)
[2022-05-10] MEDS ORDERED: CLOPIDOGREL 75 MG (PLAVIX) TABLET PO SCH (09:00)
--- NOTE | 2022-05-10 12:09 | Progress Note - Cardiology ---
Cardiology SOAP Progress Note Subjective: No cp or palp or syncope No shortness of breath at rest No n/v/d No groin or leg pain or discoloration Objective: I&O/Vital Signs 05/10/22 05/10/22 05/10/22 05/10/22 01:00 01:00 02:00 03:00 Temp 36.1 Pulse 60 60 60 Resp 17 19 B/P (MAP) 132/69 120/66 Pulse Ox 93 94 O2 Delivery Room Air Room Air Room Air 05/10/22 05/10/22 05/10/22 05/10/22 03:00 03:48 04:00 04:11 Pulse 61 74 60 Resp 17 13 16 B/P (MAP) 111/64 135/62 Pulse Ox 90 100 100 94 O2 Delivery Room Air Nasal Cannula Nasal Cannula Nasal Cannula O2 Flow Rate 2.00 2.00 2.00 05/10/22 05/10/22 05/10/22 05/10/22 05:00 05:00 06:00 07:00 Pulse 58 58 62 Resp 18 18 B/P (MAP) 131/73 135/73 Pulse Ox 98 96 98 O2 Delivery Room Air Room Air Room Air 05/10/22 05/10/22 05/10/22 05/10/22 07:00 07:43 08:00 08:00 Temp 36.8 Pulse 61 67 Resp 14 15 B/P (MAP) 104/87 135/83 Pulse Ox 94 97 O2 Delivery Room Air Room Air Room Air 05/10/22 05/10/22 09:00 09:55 Pulse 66 Resp 23 B/P (MAP) 164/82 Pulse Ox 96 O2 Delivery Room Air 05/10/22 00:00 Intake Total 1250 ml Output Total 1025 ml Balance 225 ml Weight (Pounds): 244 Weight (Calculated Kilograms): 110.813662 Side: right Groin site without hematoma: Yes Condition: DP/PT pulses palpable, extremity w/d/p Bruising: mild bruising Constitutional: AAO x 3, well-developed, well-nourished Respiratory: No accessory muscle use, No respiratory distress; chest expansion is symmetric, chest is bilaterally symmetric, lungs clear to auscultation Cardiovascular: regular rate-rhythm; No JVD; S1 and S2 Gastrointestional: No tender; soft, round; No guarding; audible bowel sounds Extremities: no lower extremity edema bilateral Neurologic/Psychiatric: grossly intact (moves all extremities) Skin: No rash on exposed areas, No ulcerations on exposed areas Results/Procedures: Labs Laboratory Tests 05/10/22 04:27: White Blood Count 6.1, Red Blood Count 3.80, Hemoglobin 10.6L, Hematocrit 34L, Mean Corpuscular Volume 89, Mean Corpuscular Hemoglobin 28, Mean Corpuscular Hemoglobin Concent 31L, Red Cell Distribution Width 15.0H, Platelet Count 208, Mean Platelet Volume 11.1, Immature Granulocyte % (Auto) 0, Neutrophils (%) (Auto) 64, Lymphocytes (%) (Auto) 27, Monocytes (%) (Auto) 7, Eosinophils (%) (Auto) 2, Basophils (%) (Auto) 1, Neutrophils # (Auto) 3.8, Lymphocytes # (Auto) 1.6, Monocytes # (Auto) 0.4, Eosinophils # (Auto) 0.1, Basophils # (Auto) 0.0, Immature Granulocyte # (Auto) 0.0, Sodium Level 140, Potassium Level 4.2, Chloride Level 106, Carbon Dioxide Level 22, Anion Gap 12, Blood Urea Nitrogen 16, Creatinine 0.86, Estimat Glomerular Filtration Rate 71, BUN/Creatinine Ratio 19, Glucose Level 90, Calcium Level 9.0, Phosphorus Level 3.1, Magnesium Level 2.1 Microbiology 05/09/22 MRSA Screen - Final, Complete MRSA not isolated Laboratory Tests 05/09/22 07:14 05/10/22 04:27 A/P: Assessment: CAD: - Coronary artery disease with history of stenting with Taxus 3 x 32-mm stent in the right coronary artery in July 2008. - Cardiac catheterization of 12/26/2011 showed right coronary artery stenosis prior to the previously placed stent. This was stented with Ion 2.75 x 12-mm stent, which was taken to a final lumen size of 3.1 mm. Elsewhere, the patient had relatively moderate disease consisting of 50% mid-vessel stenosis in the left anterior descending and 50% mid-vessel stenosis in the right coronary. - MPI of 04-21-22 : This study is indicative of multivessel ischemia (moderate). Normal global left ventricular systolic function with an ejection fraction of 6 6%. Normal regional wall motion. - Cardiac cath of 05-09-22: A 80% to 90% proximal and mid vessel left anterior descending artery stenosis stented with Skypoint 2.75 x 15 mm stent. The left anterior descending artery distal to the standard segment has diffuse moderate disease. A small caliber second diagonal branch has moderate to severe ostial disease. The first diagonal branch is jailed by the stent, but is not compromised. The left circumflex artery is diminutive and does not exhibit significant disease. The right coronary artery is dominant and had previously placed overlapping Taxus 3.0 x 32 mm and Ion 2.75 x 12 mm stent and there was 90% stenosis at the overlap to which successful balloon angioplasty was carried out with a 3.5 mm noncompliant balloon that reduced the stenosis to less than 10%. The distal right coronary artery has moderate diffuse disease. - Echocardiogram from 04-06-22: [id number] Mild to mod MR. Grade 1 diastolic dysfunction. PASP 30-35 mmHg Hyperlipidemia - but is intolerant to statins GI - History of cholecystectomy in 2008. - Gastroesophageal reflux. 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 Ortho - Degenerative joint disease. R shoulder pain R rotator cuff injury in early 2019 Chronic mild anemia - being followed by Dr. Killian. Chronic, mild, intermittent, bilateral leg swelling - likely related to venous insuff - no evidence of DVT on venous u/s of 04/06/22 Sleep apnea syndrome - being treated with C-PAP therapy, currently noncompliant Obesity - Elevated body mass index of approximately 41. H/o tobaccoism - Quit smoking in 2005. Carotid dz - Approx 50% R ICA and less than 40% L ICA stenoses on carotid ultrasonography of 03/31/22 Plan: Ok to discharge home today Continue DAPT Continue PPI and add Pepcid to regimen Advise out pt f/u in 2 weeks NETO OJEDA MD FACP [facility] May 10, 2022 12:09
== END 2022-05-10 09:55 ==
LOC: CATH 06:53 → ICU 10:29 → CATH 05-10 09:55
PROVIDERS: ATTEND Internal Medicine Cardiovascular Disease
DX: I25.10 Atherosclerotic heart disease of native coronary artery without angina pectoris (principal); Z87.440 Personal history of urinary (tract) infections; E66.01 Morbid (severe) obesity due to excess calories; K21.9 Gastro-esophageal reflux disease without esophagitis; G47.30 Sleep apnea, unspecified; E66.9 Obesity, unspecified; Z87.891 Personal history of nicotine dependence; I65.21 Occlusion and stenosis of right carotid artery
CPT/HCPCS: 80048; 80053; 80061; 83735; 84100; 85025; 85027; 85610; 85730; 87081; 92920; 93005; 93458; C1725; C1769; C1874; C1887 ×2; C1894 ×2; C9600; 36415

== ENCOUNTER → 2023-04-25 | Outpatient (CLI) | payer MEDICARE ==
[~2023-04-25] MED LIST changes: +ASPI81TA64 PO; +CLOP75TA28 PO; +FAMO20TA5 PO; +MTP25TSR PO; +PANT40TA2 PO
--- NOTE | 2023-04-25 12:29 | Diagnostic Imaging Report ---
INDICATION: Routine screening. Comparison is made with prior mammogram from 04/06/2022 and 04/11/2021. 2-D and 3-D bilateral screening mammography was performed with CAD. Scattered fibroglandular densities are identified bilaterally. A nodular density in the upper outer right breast is stable. No new mass is detected. There are scattered benign calcifications. No malignant-appearing microcalcifications are identified. Axillae are unremarkable. IMPRESSION: No mammographic features suspicious for malignancy are identified. ACR BI-RADS Category 2: Benign findings. Result letter will be mailed to the patient. Note: At least 10% of breast cancer is not imaged by mammography. BI-RADS Category 2 Dictated by: Dictated on workstation # [id number]
== END ==
LOC: RAD 09:48
PROVIDERS: ATTEND Family Medicine
DX: Z12.31 Encounter for screening mammogram for malignant neoplasm of breast (principal)
CPT/HCPCS: 77063; 77067

== ENCOUNTER 2023-05-19 15:56 | Emergency (ER) | payer MEDICARE ==
[~2023-05-19] VITALS: Ht 165.1 cm; Wt 103.4 kg
--- NOTE | 2023-05-19 16:14 | ED General ---
General Chief Complaint: Dizziness/Syncope Stated Complaint: SOA/FAINTING Source of Information: Patient Exam Limitations: No Limitations History of Present Illness Date Seen by Provider: May 19, 2023 Time Seen by Provider: 16:04 Initial Comments 73-year-old female presents the emergency department today for lightheadedness that she describes as near syncope. She states symptoms present for about a week and a half. She was seen at the walk-in clinic and started on Zanaflex for some posterior neck pain that she been having in association with her lightheadedness. She states this is mostly when she gets up to start walking. She has been slightly short of breath today but had not had shortness of breath prior to this. No fevers or chills. No cough. No abdominal pain. No chest pain. No changes in bowel or bladder habits. All other systems reviewed and negative except documented per HPI. Voice recognition software was used to help create this chart Allergies and Home Medications Allergies Coded Allergies: codeine (Verified Allergy, Severe, RASH/HIVES; CAN TAKE HYDROCODONE, 05/09/22) ORIGINAL RXN = BREATHING PROBLEMS, WHEN PT QUESTIONED TODAY 01/22/13 GAVE RASH & HIVES REACTION. HAS RECEIVED MORPHINE AND OXYCODONE IN THE PAST Sulfa (Sulfonamide Antibiotics) (Verified Allergy, Unknown, 10/26/15) sulfamethoxazole (Unverified Allergy, Unknown, HIVES, 10/26/15) trimethoprim (Unverified Allergy, Unknown, HIVES, 10/26/15) Patient Home Medication List Home Medication List Reviewed: Yes Aspirin (Children's Aspirin) 81 Mg Tab.chew, 81 MG PO DAILY Prescribed by: MIKE LARSON on 05/10/22 08 Clopidogrel Bisulfate (Clopidogrel) 75 Mg Tablet, 75 MG PO DAILY Prescribed by: MIKE LARSON on 05/10/22 08 Famotidine (Famotidine) 20 Mg Tablet, 20 MG PO BID Prescribed by: MIKE LARSON on 05/10/22 08 Lisinopril (Zestril) 20 Mg Tablet, 20 MG PO DAILY, (Reported) Entered as Reported by: DAVID ESQUIVEL on 10/12/09 1022 Metoprolol Succinate (Metoprolol Succinate) 25 Mg Tab.er.24h, 25 MG PO DAILY Prescribed by: MIKE LARSON on 05/10/22 08 Pantoprazole Sodium (Protonix) 40 Mg Tablet., 40 MG PO DAILY, (Reported) Entered as Reported by: SOHAN ODOM on 05/09/22 0758 Review of Systems Review of Systems Constitutional: see HPI Past [id number] Hx Patient Social History Tobacco Use?: No Use of E-Cig and/or Vaping dev: No Substance use?: No Alcohol Use?: No Past Medical History Surgeries: Yes (Polypectomy) Coronary Stent, Gallbladder, Hysterectomy, Orthopedic Respiratory: Yes Sleep Apnea Cardiac: Yes Coronary Artery Disease, Deep Vein Thrombosis, High Cholesterol, Hypertension, Peripheral Vascular Neurological: Yes Neuropathy Reproductive Disorders: No Genitourinary: No Gastrointestinal: Yes Gastroesophageal Reflux, Polyps Musculoskeletal: Yes (Polio as a child) Arthritis HEENT: Yes Hearing Impairment: Hard of Hearing Cancer: No Physical Exam Vital Signs Vital Signs - First Documented 05/19/23 16:00 Temp 37.2 Pulse 62 Resp 17 B/P (MAP) 117/50 (72) O2 Delivery Room Air Capillary Refill : Height, Weight, BMI Height: 0'65.00" Weight: 244lbs. oz. 110.174335pl; 43.69 BMI Method:Stated General Appearance: No Apparent Distress, WD/WN Eyes: Bilateral Eye Normal Inspection, Bilateral Eye PERRL, Bilateral Eye EOMI HEENT: Normal ENT Inspection, Pharynx Normal Neck: Full Range of Motion, Normal Inspection, Non Tender, Supple Respiratory: Chest Non Tender, Lungs Clear, Normal Breath Sounds, No Accessory Muscle Use, No Respiratory Distress Cardiovascular: Regular Rate, Rhythm, No Edema, No Gallop, No JVD, No Murmur, Normal Peripheral Pulses Gastrointestinal: Normal Bowel Sounds, No Organomegaly, Non Tender, Soft Extremity: Normal Capillary Refill, Normal Inspection, Non Tender, No Calf Tenderness Neurologic/Psychiatric: Alert, Oriented x3, No Motor/Sensory Deficits, Normal Mood/Affect, lingo cleaner II-XII Norm as Tested Skin: Normal Color, Warm/Dry Procedures/Interventions Suture Size: 5-0 Progress/Results/Core Measures Suspected Sepsis SIRS Temperature: Pulse: Respiratory Rate: Laboratory Tests 05/19/23 16:11: White Blood Count 5.2 Blood Pressure / Mean: Laboratory Tests 05/19/23 16:11: Creatinine 1.01, Platelet Count 231, Total Bilirubin 0.3 Results/Orders Lab Results Laboratory Tests Test 05/19/23 16:11 Range/Units White Blood Count 5.2 4.3-11.0 10^3/uL Red Blood Count 4.37 3.80-5.11 10^6/uL Hemoglobin 11.4 L 11.5-16.0 g/dL Hematocrit 37 35-52 % Mean Corpuscular Volume 84 80-99 fL Mean Corpuscular Hemoglobin 26 25-34 pg Mean Corpuscular Hemoglobin Concent 31 L 32-36 g/dL Red Cell Distribution Width 14.8 H 10.0-14.5 % Platelet Count 231 130-400 10^3/uL Mean Platelet Volume 11.9 9.0-12.2 fL Immature Granulocyte % (Auto) 0 % Neutrophils (%) (Auto) 55 42-75 % Lymphocytes (%) (Auto) 35 12-44 % Monocytes (%) (Auto) 6 0-12 % Eosinophils (%) (Auto) 3 0-10 % Basophils (%) (Auto) 1 0-10 % Neutrophils # (Auto) 2.9 1.8-7.8 10^3/uL Lymphocytes # (Auto) 1.8 1.0-4.0 10^3/uL Monocytes # (Auto) 0.3 0.0-1.0 10^3/uL Eosinophils # (Auto) 0.2 0.0-0.3 10^3/uL Basophils # (Auto) 0.1 0.0-0.1 10^3/uL Immature Granulocyte # (Auto) 0.0 0.0-0.1 10^3/uL Sodium Level 137 135-145 MMOL/L Potassium Level 5.0 3.6-5.0 MMOL/L Chloride Level 107 98-107 MMOL/L Carbon Dioxide Level 18 L 21-32 MMOL/L Anion Gap 12 5-14 MMOL/L Blood Urea Nitrogen 17 7-18 MG/DL Creatinine 1.01 0.60-1.30 MG/DL Estimat Glomerular Filtration Rate 58 BUN/Creatinine Ratio 17 Glucose Level 133 H 70-105 MG/DL Calcium Level 9.6 8.5-10.1 MG/DL Corrected Calcium 9.5 8.5-10.1 MG/DL Total Bilirubin 0.3 0.1-1.0 MG/DL Aspartate Amino Transf (AST/SGOT) 27 5-34 U/L Alanine Aminotransferase (ALT/SGPT) 12 0-55 U/L Alkaline Phosphatase 66 40-136 U/L Total Protein 7.3 6.4-8.2 GM/DL Albumin 4.1 3.2-4.5 GM/DL My Orders Orders - RAN BROWNLEE DO Ekg Tracing (05/19/23 16:12) Chest 1 View, Ap/Pa Only (05/19/23 16:12) Cbc With Automated Diff (05/19/23 16:12) Comprehensive Metabolic Panel (05/19/23 16:12) Orthostatic Vital Signs (Adult (05/19/23 16:14) Ct Head Wo (05/19/23 16:25) Vital Signs/I&O 05/19/23 16:00 Temp 37.2 Pulse 62 Resp 17 B/P (MAP) 117/50 (72) O2 Delivery Room Air Capillary Refill : ECG Comment Sinus rhythm with a rate of 57 bpm. Normal intervals. Left axis deviation. No ST or T wave abnormalities. No ectopy. No STEMI. Departure Impression Primary Impression: Near syncope Disposition: 01 HOME, SELF-CARE Condition: Stable Departure-Patient Inst. Referrals: VEDA JURADO MD (PCP/Family) Primary Care Physician Patient Instructions: Near Fainting (DC) Add. Discharge Instructions: You were seen in the emergency room today after nearly passing out. No emergent medical conditions are identified. CT scan, chest x-ray are normal. The electrical tracing of your heart is normal as well. Your vital signs and exam are reassuring. All of your electrolytes are normal and you are not anemic. Please follow-up with your primary doctor should your symptoms persist. Return to the emergency department for any severe concerns. All discharge instructions reviewed with patient and/or family. Voiced understanding. RAN BROWNLEE DO May 19, 2023 16:14
[2023-05-19 16:27] LABS: BASOPHILS # (AUTO) 0.1 10^3/uL (0.0-0.1); BASOPHILS % (AUTO) 1 % (0-10); EOSINOPHILS # (AUTO) 0.2 10^3/uL (0.0-0.3); EOSINOPHILS % (AUTO) 3 % (0-10); HEMATOCRIT 37 % (35-52); HEMOGLOBIN 11.4 g/dL (11.5-16.0); LYMPHOCYTES # (AUTO) 1.8 10^3/uL (1.0-4.0); LYMPHOCYTES % (AUTO) 35 % (12-44); MEAN CORPUSCULAR HEMOGLOBIN 26 pg (25-34); MEAN CORPUSCULAR HGB CONC 31 g/dL (32-36); MEAN CORPUSCULAR VOLUME 84 fL (80-99); MEAN PLATELET VOLUME 11.9 fL (9.0-12.2); MONOCYTES # (AUTO) 0.3 10^3/uL (0.0-1.0); MONOCYTES % (AUTO) 6 % (0-12); NEUTROPHILS # (AUTO) 2.9 10^3/uL (1.8-7.8); NEUTROPHILS % (AUTO) 55 % (42-75); PLATELET COUNT 231 10^3/uL (130-400); WHITE BLOOD COUNT 5.2 10^3/uL (4.3-11.0)
--- NOTE | 2023-05-19 16:30 | Diagnostic Imaging Report ---
CHEST 1 VIEW, AP/PA ONLY INDICATION: dizziness, near syncope, SOB. COMPARISON: None. FINDINGS: Lungs: Normal lung volume. No focal consolidation. Normal pulmonary vasculature. Pleura: No pleural effusion or pneumothorax. Heart and Mediastinum: Cardiomediastinal silhouette and great vessels of the thorax are normal. Osseous Structures and Soft Tissues: No acute osseous abnormality. Normal soft tissues. IMPRESSION: No acute cardiopulmonary process. Dictated by: Dictated on workstation # [id number]
[2023-05-19 16:39] LABS: ALBUMIN 4.1 GM/DL (3.2-4.5)
[2023-05-19 16:40] LABS: CALCIUM 9.6 MG/DL (8.5-10.1)
[2023-05-19 16:41] LABS: TOTAL PROTEIN 7.3 GM/DL (6.4-8.2)
[2023-05-19 16:43] LABS: BILIRUBIN,TOTAL 0.3 MG/DL (0.1-1.0)
[2023-05-19 16:45] LABS: CREATININE SERUM 1.01 MG/DL (0.60-1.30)
--- NOTE | 2023-05-19 16:46 | Diagnostic Imaging Report ---
PROCEDURE: CT head without contrast. TECHNIQUE: Multiple contiguous axial images were obtained through the brain without the use of intravenous contrast. Auto Exposure Controls were utilized during the CT exam to meet ALARA standards for radiation dose reduction. INDICATION: Dizziness. Headache. COMPARISON: None. FINDINGS: The brain parenchyma is normal in attenuation. No intra- or extra-axial mass or fluid collection. No acute hemorrhage. The ventricles are normal in size, shape, and morphology. The huntley-white matter junction is normal. The subarachnoid cisterns are patent. Small mucous retention cyst within the left maxillary sinus.. The visualized portions of the orbits and globes are normal. The mastoid air cells are clear. The metal sheet roller operator topogram shows no lytic lesion or fracture. Impression: No acute intracranial process. Dictated by: Dictated on workstation # [id number]
[2023-05-19 16:54] VITALS: BP_SYST 126; BP_SYST 131; BP_SYST 134; BP_DIAS 60; BP_DIAS 68; BP_DIAS 79
[2023-05-19 17:26] VITALS: BP 123/72
== END 2023-05-19 17:27 | disposition home or self-care (01) ==
LOC: EDUNIT# 15:56 → ER 15:57
DX: R55 Syncope and collapse (principal); Z28.310 Unvaccinated for COVID-19
CPT/HCPCS: 36415; 70450; 71045; 80053; 85025; 93005